=== PATIENT | female | born 1975 | race Caucasian/White ===

== ENCOUNTER 2025-01-11 20:16 | Emergency (ER) | payer MEDICAID, SELFPAY ==
--- OUTSIDE RECORDS SUMMARY | 2011-02-21 10:32 | XMS_ITS | Continuity of Care Document ---
Author Organization [facility] Address [address] [place] [address] 2[address] [place] [address] Phone Care Team Providers Care Battery Parts Assembler Name Role Phone Duane Beltran MD Unavailable Unavailabl e Allergies, Adverse Reactions, Alerts Substance Reaction Status Criticality Penicillins Hives / Skin Rash Active No Informa tion amoxicillin Hives / Skin Rash Active No Informa tion erythromycin base Hives / Skin Rash Active No In formation Medications Medication Instructions Dosage Effective Dates (start - stop) Status Comments tizanidine 2 mg Cap take 2 capsule (4MG) by oral route every 6 hours for Myofascial pain - Active Lunesta 2 mg Tab - Active MULTIVITAMINS (unknown strength) Not Available - Active CYMBALTA (unknown strength) Not Available - Active Procedures Procedure Date Voided Encounter MD_Follow Up Level 4 Lab_Drug Screen Each MD_Follow Up Level 4 Lab_Drug Screen Each Beh_Intervention TP_Inj_Trigger Point 1 Or 2 Muscles Voided Encounter Beh_Eval MD_Follow Up Level 4 Lab_Drug Screen Each MD_Follow Up Level 3 Inj_Radiofrequency_Cervical Inj_Radiofrequency_Cervical_Add'l Levels Fluroscopic Guidance Facility_Inj_Radiofrequency_Cervical Sep Facility_Inj_Radiofrequency_Cervical_Add 'l Levels Advance Directives Directive Yes / No Effective Date File Name No Information Encounters Encounter Description Practice Location Reason(s) For Visit Diagnoses Date Provider [facility], [address] [place] [address], [place], [place], [id number], tel:[phone] [facility] No Information Devin Zepeda. [address] [place] [address], [place], [place], [id number], [place]. tel:[phone] [facility], [address] [place] [address], [place], [id number], [place] tel:[phone] [facility] No Information Chas De La Torre. [address] [place] [address], [place], [place], [id number], [place]. tel:[phone] MD_Follow Up Level 4 [facility], [address] [place] [address], [place], [place], [id number], tel:[phone] [facility] No Information Miguel Heaton. [address] [place] [address], [id number], [place]. tel:[phone] MD_Follow Up Level 4 [facility], [address] [place] [address], [place], [place], [id number], tel:[phone] [facility] No Information Gómez Zhao Shreya Mark. [address] [place] [address], [id number], . tel:[phone] [facility], [address] [place] [address], [place], [id number], [place] tel:[phone] [facility] No Information Vanesa Nelson. [address] [place] [address], [id number], . tel:[phone] [facility], [address] [place] [address], [place], [place], [id number], tel:[phone] [facility] No Information Su Justice. [address] [place] [address], [place], [place], [id number], . tel:[phone] [facility], [address] [place] [address], [place], [id number], [place] tel:[phone] [facility] No Information Devin Zepeda. [address] [place] [address], [address] [place] [address], [place], [id number], [place]. tel:[phone] [facility], [address] [place] [address], [place], [id number], [place] tel:[phone] [facility] back pain (chief complaint) No Information Vanesa Nelson. [address] [place] [address], [id number], [place]. tel:[phone] MD_Follow Up Level 4 [facility], [address] [place] [address], [place], [id number], [place] tel:[phone] [facility] No Information Lizeth Monroe. [address] [place] [address], [id number], [place]. tel:[phone] MD_Follow Up Level 3 [facility], [address] [place] [address], [place], [id number], [place] tel:[phone] [facility] neck pain (chief complaint) Spondylosis Cervical NO myelo Su Yus. [address] [place] [address], [address] [place] [address], [place], [id number], [place]. tel:[phone] [facility], [address] [place] [address], [place], [id number], [place] tel:[phone] [facility] neck pain (chief complaint) No Information Jeromyberry Vinh. [address] [place] [address], [place], [place], [id number], [place]. tel:[phone] [facility], [address] [place] [address], [place], [id number], [place] tel:[phone] [facility] No Information [facility]. [address] [place] [address], [id number], [place]. tel:[phone] [facility], [address] [place] [address], [place], [id number], [place] tel:[phone] [facility] No Information Devin David. [address] [place] [address], [place], [place], [id number], . tel:[phone] [facility], [address] [place] [address], [place], [place], [id number], tel:[phone] [facility] Adjustment disorder with mixed anxiety and depressed mood Choco Lyon. [address] [place] [address], [id number], . tel:[phone] [facility], [address] [place] [address], [place], [place], [id number], tel:[phone] [facility] Long-term (current) use of other medicationsOpioid type dependence, continuous use Devin Zepeda. [address] [place] [address], [place], [place], [id number], . tel:[phone] [facility], [address] [place] [address], [place], [place], [id number], tel:[phone] [facility] Myalgia and myositis, unspecified Su Justice. [address] [place] [address], [id number], . tel:[phone] [facility], [address] [place] [address], [place], [place], [id number], tel:[phone] [facility] CervicalgiaPain in joint involving shoulder region Amol Parish. [address] [place] [address], [id number], . tel:[phone] [facility], [address] [place] [address], [place], [place], [id number], tel:[phone] [facility] Iron deficiency anemia, unspecifiedBrachial neuritis or radiculitis nosCervical spondylosis without myelopathyMigraine, unspecified without mention of intractable migraine Chas De La Torre. [address] [place] [address], [id number], . tel:[phone] Family History Family Member Type Diagnosis Age At Onset Problem (finding) Family history of asthm a Problem (finding) Family history of depre ssion Problem (finding) Family history of migra ine Payers Payer name Insurance type Covered libertarian ID Authoriza tiviji(s) [facility] CI [id number] Social History Type Description Quantity Date Captured Comments Sex Female Smoking Status No Information Chief Complaint And Reason For Visit No Information History Of Present Illness Encounter Date Complaint History Of Prese nt Illness No Information Instructions Date Instruction Additional Infor mation No Information Assessments Type Assessment Date No Information
--- OUTSIDE RECORDS SUMMARY | 2024-06-18 09:00 | XMS_ITS ---
Author Organization [facility] Address [address] [place] [address] Care Team Providers Care Bike Mechanic Name Role Phone Heaven Patino Primary Care Provider REASON FOR VISIT new patient Encounters Encounter Location Date Provider Diagnosis [facility] [place] [phone] 06/18/2024 Heaven Patino Plan Of Treatment No Information Progress Notes * Fei JEAN BAPTISTEaDOB:1975 (49 yo F)Acc No.[id number]:06/18/2024 Progress Notes Patient: Sheridan HORNER Provider: EVERETT Garcia :1975 A ge:48 Y S ex:Female Date:06/18/2024 Phone: Address:[address] [place], [place] [id number] Subjective: * Chief Complaints: * 1 . New patient. * Medical History: Objective: * Vitals: Assessment: Plan: * Treatment: * Billing Information: * Visit Code: * Procedure Codes: * Electronic signature of BRIANNA Holder on 01/11/2025 at 09:02 PM EDT Sign off status: Pending * Provider: EVERETT Garcia Date: 0 06/18/2024 Generated for Pam bonilla/Pooja/eTransmitting on: 1 09:02 PM EDT
--- OUTSIDE RECORDS SUMMARY | 2024-06-27 10:00 | XMS_ITS ---
Author Organization [facility] Address [address] [address] Care Team Providers Care Canvas Cutter Hand Name Role Phone Heaven Patino Primary Care Provider REASON FOR VISIT new patient patient in a program in [place] will have to reschedule Encounters Encounter Location Date Provider Diagnosis [facility] [place] [phone] 06/27/2024 Heaven Patino Plan Of Treatment No Information Progress Notes * JEAN BAPTISTEFei MASSEYaDOB:1975 (49 yo F)Acc No.[id number]:06/27/2024 Progress Notes Patient: Sheridan HORNER Provider: EVERETT Garcia :1975 A ge:48 Y S ex:Female Date:06/27/2024 Phone: Address:[address] [place], [place] [id number] Subjective: * Chief Complaints: * 1 . new patient patient in a program in [place] will have to reschedule. * Medical History: Objective: * Vitals: Assessment: Plan: * Treatment: * Billing Information: * Visit Code: * Procedure Codes: * Electronic signature of BRIANNA Holder on 01/11/2025 at 09:02 PM EDT Sign off status: Pending * Provider: EVERETT Garcia Date: 0 06/27/2024 Generated for Pam bonilla/Pooja/eTransmitting on: 1 09:02 PM EDT
[2025-01-11 20:20] VITALS: BP 102/65; BP 148/84; PULSE 100; PULSE 75; RESP 15; TEMP 37; O2SAT 96; O2SAT 98; BMI 26.7
[2025-01-11 20:46] LABS: Glucose, Whole Blood 74 mg/dL (60-115)
--- NOTE | 2025-01-11 20:51 | PC.NURSE ---
pt biba from [facility] [place], a&ox4, respirations even and unlabored. pt reports x1 month of abdominal pain nausea and blood in stools. pt abdomen soft non tender to touch. vss. pt changed over with tech and security for safety and elopement risk. pt has 1:1 sitter at this time. pt denies si/hi at this time
--- NOTE | 2025-01-11 21:02 | PC.NURSE ---
MD Stack aware of pt poc, no new orders at this time, pt offers no complaints and is asymptomatic
--- OUTSIDE RECORDS SUMMARY | 2025-01-11 21:02 | XMS_ITS | Encounter Summary ---
Author Organization [facility] Address [address] [place] [address] Care Team Providers Care Telecommunications Consultant Name Role Phone Jayna Hall [facility] Primary Care Provider [phone]- [phone] Encounter Details Date Type Department Care Team (Late st Contact Info) Description 01/06/2025 Lab Requisition [facility] - Main Lab [address] [facility] [place] [address] Jayna Hall FNP [address] [place] [address] Other long term care pharmacist (current) drug therapy Social History Tobacco Use Types Packs/Day Years Used Date Smoking Tobacco: Never Assessed Comments Unknown Sex and Gender Information Value Date Recorded Sex Assigned at Not on file Legal Sex Female 4:03 PM EST Gender Identity Not on file Sexual Orientation Not on file documented as of this encounter Plan of Treatment Not on file documented as of this encounter Procedures Procedure Name Priority Date/Time Associated Diagnosis Comments HEMOGLOBIN AND HEMATOCRIT Routine 01/06/2025 7:00 AM EDT Other detention (current) drug therapy documented in this encounter Results * (ABNORMAL) Hemoglobin and hematocrit (01/06/2025 7:00 AM EDT) Hemoglobin 10.1(L) 11.5 - 16.0 g/dL LAB HEMETOLOGY METHOD 01/06/2025 10:05 AM EDT [facility] Hematocrit 32.5(L) 35.0 - 47.0 % LAB HEMETOLOGY METHOD 01/06/2025 10:05 AM [facility] Blood Venous blood specimen / Unknown Venipuncture / Unknown 01/06/2025 7:00 AM EDT 01/06/2025 9:40 AM EDT Jayna REED LAB BLOOD ORDERABLES Final Result [facility] ([facility]) [facility] [address] [place] [address], documented in this encounter Visit Diagnoses Diagnosis Other long term care pharmacist (current) drug therapy documented in this encounter Care Teams Telecommunications Consultant Relationship Specialty Start Date End Date Jayna Hall FNP [address] [place] [phone] PCP - General Family Medicine 01/01/25 documented as of this encounter
--- OUTSIDE RECORDS SUMMARY | 2025-01-11 21:02 | XMS_ITS | Encounter Summary ---
Author Organization [facility] Address [address] [place] [address] Care Team Providers Care Application Performance Engineer Name Role Phone Jayna Hall Primary Care Provider +1- [phone] Encounter Details Date Type Department Care Team (Late st Contact Info) Description 01/01/2025 Lab Requisition [facility] - Main Lab [address] [facility] [place] [address] Jayna Hall FNP [address] [place] [address] Social History Tobacco Use Types Packs/Day Years Used Date Smoking Tobacco: Never Assessed Comments Unknown Sex and Gender Information Value Date Recorded Sex Assigned at Not on file Legal Sex Female 4:03 PM EST Gender Identity Not on file Sexual Orientation Not on file documented as of this encounter Plan of Treatment Not on file documented as of this encounter Visit Diagnoses Not on filedocumented in this encounter Care Teams Application Performance Engineer Relationship Specialty Start Date End Date Jayna Hall FNP [address] [place] [address] PCP - General Family Medicine 01/01/25 documented as of this encounter
--- OUTSIDE RECORDS SUMMARY | 2025-01-11 21:02 | XMS_ITS | Encounter Summary ---
Author Organization [employer] Address [address] [place] [address] Care Team Providers Care Quill Skinner Name Role Phone Jayna Hall [facility] Primary Care Provider +1- [phone] Encounter Details Date Type Department Care Team (Late st Contact Info) Description 01/09/2025 Lab Requisition [facility] - Main Lab [address] [place] [address] Jayna Hall FNP [address] [place] [address] Other long term care pharmacist [...] Procedure Name Priority Date/Time Associated Diagnosis Comments IRON AND TIBC Routine 01/09/2025 7:00 AM EDT Other long term care pharmacist (current) drug therapy HEMOGLOBIN AND HEMATOCRIT Routine 01/09/2025 7:00 AM EDT Other fci (current) drug therapy FERRITIN Routine 01/09/2025 7:00 AM EDT Other long term care pharmacist (current) drug therapy documented in this encounter Results * Iron and TIBC (01/09/2025 7:00 AM EDT) Iron 61 40 - 150 mcg/dL LAB CHEMISTRY METHOD 01/09/2025 10:54 AM EDT [facility] TIBC 280 250 - 450 mcg/dL LAB CHEMISTRY METHOD 01/09/2025 10:54 AM EDT [facility] Iron Saturation 22 15 - 50 % LAB CHEMISTRY METHOD 01/09/2025 10:54 AM EDT [facility] Blood Venous blood specimen / Unknown Venipuncture / Unknown 01/09/2025 7:00 AM EDT 01/09/2025 9:28 AM EDT us Jayna Hall [facility] LAB BLOOD ORDERABLES Final Result Performing Organization Address City/[facility]/ZIP Co de Phone Number [facility] [address] [place] [address], [place] [phone] * Ferritin (01/09/2025 7:00 AM EDT) Ferritin 29 8 - 252 ng/mL LAB CHEMISTRY METHOD 01/09/2025 10:56 AM EDT [facility] Blood Venous blood specimen / Unknown Venipuncture / Unknown 01/09/2025 7:00 AM EDT 01/09/2025 9:28 AM EDT us Jayna Hall [facility] LAB BLOOD ORDERABLES Final Result Performing Organization Address City/[facility]/ZIP Co de Phone Number [facility] [address] [place] [address], [place] [phone] * (ABNORMAL) Hemoglobin and hematocrit (01/09/2025 7:00 AM EDT) Hemoglobin 10.1(L) 11.5 - 16.0 g/dL LAB HEMETOLOGY METHOD 01/09/2025 10:08 AM EDT [facility] Hematocrit 33.3(L) 35.0 - 47.0 % LAB HEMETOLOGY METHOD 01/09/2025 10:08 AM EDT [facility] Blood Venous blood specimen / Unknown Venipuncture / Unknown 01/09/2025 7:00 AM EDT 01/09/2025 9:28 AM EDT Jayna REED LAB BLOOD ORDERABLES Final Result [facility] ([facility]) [facility] [address] [place] [address], documented in this encounter Visit Diagnoses Diagnosis Other fci (current) drug therapy documented in this encounter Care Teams Quill Skinner Relationship Specialty Start Date End Date Jayna Hall FNP [address] [place] [phone] PCP - General Family Medicine 01/01/25 documented as of this encounter
--- OUTSIDE RECORDS SUMMARY | 2025-01-11 21:02 | XMS_ITS | Patient Health Record ---
Author Organization [facility] Address [address] [facility] [address] [place] [address] Care Team Providers Care Supervisor Post Wave Name Role Phone Heaven Patino Primary Care Provider Reason For Referral No Information Plan Of Treatment No Information Insurance Providers Payer Name Payer Address Payer Phone Subscriber Number Group Number Insured Name Patient Relationship to Insured Coverage Start Date Coverage End Date [facility] [address] [place] [phone] [id number] Sheridan Jean Baptiste Self - patient is the insured
--- OUTSIDE RECORDS SUMMARY | 2025-01-11 21:02 | XMS_ITS | Encounter Summary ---
Author Organization [employer] Address [address] [place] [address] Care Team Providers Care Survey Questionnaire Designer Name Role Phone Jayna Hall [facility] Primary Care Provider +1- [phone] Encounter Details Date Type Department Care Team (Late st Contact Info) Description 01/01/2025 Lab Requisition [facility] - Main Lab [address] [facility] [place] [address] Jayna Hall FNP [address] [place] [address] Other termite treater (current) drug therapy Social History Tobacco Use [...] Procedure Name Priority Date/Time Associated Diagnosis Comments AST, ALT, BILIRUBIN ELR STATE REPORTABLES Routine 01/01/2025 7:00 AM EDT Other termite treater (current) drug therapy HEPATITIS C VIRUS QUANTITATIVE PCR Routine 01/01/2025 7:00 AM EDT Other long-term (current) drug therapy COMPREHENSIVE METABOLIC PANEL Routine 01/01/2025 7:00 AM EDT Other long-term (current) drug therapy documented in this encounter Results * (ABNORMAL) AST, ALT, Bilirubin ELR state reportables (01/01/2025 7:00 AM EDT) ALT (SGPT) 64(H) 10 - 60 unit/L LAB CHEMISTRY METHOD 01/02/2025 10:39 AM EDT [facility] AST (SGOT) 82(H) 10 - 42 unit/L LAB CHEMISTRY METHOD 01/02/2025 10:39 AM [facility] Total Bilirubin 0.4 0.0 - 1.4 mg/dL LAB CHEMISTRY METHOD 01/02/2025 10:39 AM [facility] Blood Venous blood specimen / Unknown Venipuncture / Unknown 01/01/2025 7:00 AM EDT 01/01/2025 10:07 AM EDT us Jayna Hall [facility] NURSE LAB BLOOD ORDERABLES Final Result [facility] [address] [place] [address], [place] [phone] * (ABNORMAL) Comprehensive metabolic panel (01/01/2025 7:00 AM EDT) Sodium 142 133 - 145 mmol/L LAB CHEMISTRY METHOD 01/01/2025 11:35 AM [facility] Potassium 4.5 3.5 - 5.5 mmol/L LAB CHEMISTRY METHOD 01/01/2025 11:35 AM [facility] Chloride 107 96 - 110 mmol/L LAB CHEMISTRY METHOD 01/01/2025 11:35 AM [facility] CO2 32 21 - 32 mmol/L LAB CHEMISTRY METHOD 01/01/2025 11:35 AM [facility] Anion Gap 3 3 - 11 LAB CHEMISTRY METHOD 01/01/2025 11:35 AM [facility] Glucose 80 70 - 100 mg/dL LAB CHEMISTRY METHOD 01/01/2025 11:35 AM [facility] BUN 9 5 - 25 mg/dL LAB CHEMISTRY METHOD 01/01/2025 11:35 AM [facility] Creatinine 0.68 0.50 - 1.10 mg/dL LAB CHEMISTRY METHOD 01/01/2025 11:35 AM [facility] eGFR 106 >=60 mL/min/1. 73m2 LAB CHEMISTRY METHOD 01/01/2025 11:35 AM [facility] Comment:Calculation based on the Chronic Kidney Disease Epidemiology Collaboration (CKD-EPI) equation refit without adjustment for race. BUN/Creatinine Ratio 13.2 LAB CHEMISTRY METHOD 01/01/2025 11:35 AM [facility] Calcium 8.6 8.5 - 10.5 mg/dL LAB CHEMISTRY METHOD 01/01/2025 11:35 AM [facility] AST (SGOT) 82(H) 10 - 42 unit/L LAB CHEMISTRY METHOD 01/01/2025 11:35 AM [facility] ALT (SGPT) 64(H) 10 - 60 unit/L LAB CHEMISTRY METHOD 01/01/2025 11:35 AM [facility] Alkaline Phosphatase 60 42 - 121 unit/L LAB CHEMISTRY METHOD 01/01/2025 11:35 AM [facility] Total Protein 5.7(L) 6.0 - 8.0 g/dL LAB CHEMISTRY METHOD 01/01/2025 11:35 AM [facility] Albumin 2.9(L) 3.2 - 5.0 g/dL LAB CHEMISTRY METHOD 01/01/2025 11:35 AM [facility] Total Bilirubin 0.4 0.0 - 1.4 mg/dL LAB CHEMISTRY METHOD 01/01/2025 11:35 AM [facility] Blood Venous blood specimen / Unknown Venipuncture / Unknown 01/01/2025 7:00 AM EDT 01/01/2025 10:07 AM EDT us Jayna Hall [facility] NURSE LAB BLOOD ORDERABLES Final Result [facility] [address] [place] [address], [place] [phone] * (ABNORMAL) Hepatitis C virus quantitative molecular study (01/01/2025 7:00 AM EDT) HCV Qual Interp Detected (A) Not Detected LAB MOLECULAR DIAGNOSTICS METHOD 01/02/2025 10:25 AM EDT [facility] HCV RNA Quantitative 18,785,5 33(H) <12 I Unit/mL LAB MOLECULAR DIAGNOSTICS METHOD 01/02/2025 10:25 AM EDT [facility] HCV RNA Quantitative Log 7.27(H) <1.08 Log IU/mL LAB MOLECULAR DIAGNOSTICS METHOD 01/02/2025 10:25 AM EDT [facility] Blood Venous blood specimen / Unknown Venipuncture / Unknown 01/01/2025 7:00 AM EDT 01/01/2025 10:07 AM EDT Jayna REED LAB BLOOD ORDERABLES Final Result [facility] [address] [place] [address], [place] [phone] documented in this encounter Visit Diagnoses Diagnosis Other termite treater (current) drug therapy documented in this encounter Care Teams Survey Questionnaire Designer Relationship Specialty Start Date End Date Jayna Hall FNP [address] [place] [phone] PCP - General Family Medicine 01/01/25 documented as of this encounter
--- OUTSIDE RECORDS SUMMARY | 2025-01-11 21:03 | XMS_ITS | Clinical Summary ---
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 Name Role Phone Jayna Hall [employer]RIX WORKER Primary Care Provider [phone] Encounters Date Type Department Care Team Description 01/09/2025 Lab Requisition [facility] [address] [place] [address] Jayna Hall FNP Other intermediate (current) drug therapy 01/06/2025 Lab Requisition [facility] [address] [place] [address] Jayna Hall FNP Other watermaster (current) drug therapy 01/01/2025 Lab Requisition [facility] [address] [place] [address] Jayna Hall FNP 01/01/2025 Lab Requisition [facility] [address] [place] [phone] Jayna Hall FNP Other intermediate (current) drug therapy from Last 3 Months Social History Tobacco Use Types Packs/Day Years Used Date Smoking Tobacco: Never Assessed Comments Unknown Sex and Gender Information Value Date Recorded Sex Assigned at Not on file Legal Sex Female 4:03 PM EST Gender Identity Not on file Sexual Orientation Not on file Plan of Treatment Health Maintenance Due Date Last Done Comments Breast Cancer Screening 1973 Colorectal Cancer Screening: Colonoscopy 1973 DTaP,Tdap,and Td Vaccines (1 - Tdap) 1992 Hepatitis B Vaccines (1 of 3 - 19+ 3-dose series) 1992 Cervical Cancer Screening: P ap Smear 1994 Pneumococcal Vaccine: 50+ Ye ars (1 of 1 - PCV) 08/13/2023 Zoster Vaccines (1 of 2) 08/13/2023 Depression Screening 04/03/2024 COVID-19 Vaccine (1 - 2023-2 5 season) 2024 Influenza Vaccine (#1) 2024 HIV Screening 01/01/2025 Social Influencers of Health Screening 01/01/2025 RSV Immunization Adult Patie nts (1 - 1-dose 75+ series) 2048 Hepatitis C Screening Completed 01/01/2025 HIB Vaccines Aged Out No longer eligi ble based on patient's age to complete this topic HPV Vaccines Aged Out No longer eligi ble based on patient's age to complete this topic Hepatitis A Vaccines Aged Out No long er eligible based on patient's age to complete this topic IPV Vaccines Aged Out No longer eligi ble based on patient's age to complete this topic MMR Vaccines Aged Out No longer eligi ble based on patient's age to complete this topic Meningococcal ACWY Vaccine Aged Out N o longer eligible based on patient's age to complete this topic Meningococcal B Vaccine Aged Out No l onger eligible based on patient's age to complete this topic RSV Immunization Patients Un eros 20 months Aged Out No longer eligible b ased on patient's age to complete this topic Varicella Vaccines Aged Out No longer eligible based on patient's age to complete this topic Procedures Procedure Name Priority Date/Time Associated Diagnosis Comments IRON AND TIBC Routine 01/09/2025 7:00 AM EDT Other intermediate (current) drug therapy FERRITIN Routine 01/09/2025 7:00 AM EDT Other watermaster (current) drug therapy HEMOGLOBIN AND HEMATOCRIT Routine 01/09/2025 7:00 AM EDT Other intermediate (current) drug therapy HEMOGLOBIN AND HEMATOCRIT Routine 01/06/2025 7:00 AM EDT Other watermaster (current) drug therapy AST, ALT, BILIRUBIN ELR STATE REPORTABLES Routine 01/01/2025 7:00 AM EDT Other intermediate (current) drug therapy COMPREHENSIVE METABOLIC PANEL Routine 01/01/2025 7:00 AM EDT Other intermediate (current) drug therapy HEPATITIS C VIRUS QUANTITATIVE PCR Routine 01/01/2025 7:00 AM EDT Other intermediate (current) drug therapy from Last 3 Months Results * Iron and TIBC (01/09/2025 7:00 AM EDT) Pathologist [facility] Iron 61 40 - 150 mcg/dL LAB CHEMISTRY METHOD 01/09/2025 10:54 AM EDT [facility] TIBC 280 250 - 450 mcg/dL LAB CHEMISTRY METHOD 01/09/2025 10:54 AM EDT [facility] Iron Saturation 22 15 - 50 % LAB CHEMISTRY METHOD 01/09/2025 10:54 AM EDT [facility] Blood Venous blood specimen / Unknown Venipuncture / Unknown 01/09/2025 7:00 AM EDT 01/09/2025 9:28 AM EDT us Jayna Hall [facility] BLOOD ORDERABLES Final Result [facility] [address] [place] [address], * (ABNORMAL) Hemoglobin and hematocrit (01/09/2025 7:00 AM EDT) Only the most recent of2 resultswithin the time period is included. Pathologist [facility] Hemoglobin 10.1(L) 11.5 - 16.0 g/dL LAB HEMETOLOGY METHOD 01/09/2025 10:08 AM EDT [facility] Hematocrit 33.3(L) 35.0 - 47.0 % LAB HEMETOLOGY METHOD 01/09/2025 10:08 AM EDT [facility] Blood Venous blood specimen / Unknown Venipuncture / Unknown 01/09/2025 7:00 AM EDT 01/09/2025 9:28 AM EDT us Jayna Hall [facility] LAB BLOOD ORDERABLES Final Result [facility] [address] [place] [address], [place] [phone] * Ferritin (01/09/2025 7:00 AM EDT) Pathologist [facility] Ferritin 29 8 - 252 ng/mL LAB CHEMISTRY METHOD 01/09/2025 10:56 AM EDT [facility] Blood Venous blood specimen / Unknown Venipuncture / Unknown 01/09/2025 7:00 AM EDT 01/09/2025 9:28 AM EDT us Jayna Hall [facility] BLOOD ORDERABLES Final Result Performing Organization Address City/[facility]/ZIP Co de Phone Number [facility] [address] [place] [address], [place] [phone] * (ABNORMAL) AST, ALT, Bilirubin ELR state reportables (01/01/2025 7:00 AM EDT) [facility] ALT (SGPT) 64(H) 10 - 60 unit/L LAB CHEMISTRY METHOD 01/02/2025 10:39 AM EDT [facility] AST (SGOT) 82(H) 10 - 42 unit/L LAB CHEMISTRY METHOD 01/02/2025 10:39 AM EDT [facility] Total Bilirubin 0.4 0.0 - 1.4 mg/dL LAB CHEMISTRY METHOD 01/02/2025 10:39 AM EDT [facility] Blood Venous blood specimen / Unknown Venipuncture / Unknown 01/01/2025 7:00 AM EDT 01/01/2025 10:07 AM EDT us Jayna Hall [facility] BLOOD ORDERABLES Final Result [facility] [address] [place] [address], [place] [phone] * (ABNORMAL) Hepatitis C virus quantitative molecular study (01/01/2025 7:00 AM EDT) [facility] HCV Qual Interp Detected (A) Not Detected [...] AM EDT 01/01/2025 10:07 AM EDT Jayna Hall [facility] BLOOD ORDERABLES Final Result Performing Organization Address City/[facility]/ZIP Co de Phone Number [facility] [address] [place] [address], [place] [phone] * (ABNORMAL) Comprehensive metabolic panel (01/01/2025 7:00 AM EDT) [facility] Sodium 142 133 - 145 mmol/L LAB CHEMISTRY METHOD 01/01/2025 11:35 AM EDT [facility] Potassium 4.5 3.5 - 5.5 mmol/L LAB CHEMISTRY METHOD 01/01/2025 11:35 AM EDT [facility] Chloride 107 96 - 110 mmol/L LAB CHEMISTRY METHOD 01/01/2025 11:35 AM EDT [facility] CO2 32 21 - 32 mmol/L LAB CHE[facility]STR[facility] An[facility] Gap 3 3 - 11 LAB CHEMISTRY METHOD 01/01/2025 11:35 AM [facility] Glucose 80 70 - 100 mg/dL LAB CHEMISTRY METHOD 01/01/2025 11:35 AM [facility] BUN 9 5 - 25 mg/dL LAB CHEMISTRY METHOD 01/01/2025 11:35 AM [facility] Creatinine 0.68 0.50 - 1.10 mg/dL LAB CHEMISTRY METHOD 01/01/2025 11:35 AM [facility] eGFR 106 >=60 mL/min/1. 73m2 LAB CHEMISTRY METHOD 01/01/2025 11:35 AM [facility] Comment:Calculation based on the Chronic Kidney Disease Epidemiology Collaboration (CKD-EPI) equation refit without adjustment for race. BUN/Creatinine Ratio 13.2 LAB CHEMISTRY METHOD 01/01/2025 11:35 AM [facility] Calcium 8.6 8.5 - 10.5 mg/dL LAB CHEMISTRY METHOD 01/01/2025 11:35 AM [facility] AST (SGOT) 82(H) 10 - 42 unit/L LAB CHEMISTRY METHOD 01/01/2025 11:35 AM [facility] ALT (SGPT) 64(H) 10 - 60 unit/L LAB CHEMISTRY METHOD 01/01/2025 11:35 AM [facility] Alkaline Phosphatase 60 42 - 121 unit/L LAB CHEMISTRY METHOD 01/01/2025 11:35 AM [facility] Total Protein 5.7(L) 6.0 - 8.0 g/dL LAB CHEMISTRY METHOD 01/01/2025 11:35 AM [facility] Albumin 2.9(L) 3.2 - 5.0 g/dL LAB CHEMISTRY METHOD 01/01/2025 11:35 AM [facility] Total Bilirubin 0.4 0.0 - 1.4 mg/dL LAB CHEMISTRY METHOD 01/01/2025 11:35 AM EDT [facility] Blood Venous blood specimen / Unknown Venipuncture / Unknown 01/01/2025 7:00 AM EDT 01/01/2025 10:07 AM EDT us Jayna REED LAB BLOOD ORDERABLES Final Result [facility] [address] [place] [address], [place] [phone] from Last 3 Months Care Teams Pulp Mill Supervisor Relationship Specialty Start Date End Date Jayna Hall FNP [address] [place] [phone] PCP - General Family Medicine 01/01/25
[2025-01-11 21:11] LABS: Appearance Urine Clear; Glucose Urine UA Negative (Negative); PH 5.5 (5.0-9.0); Specific Gravity - Urine 1.010 (1.005-1.025)
[2025-01-11 21:12] LABS: UPreg QC Valid YES
[2025-01-11 21:46] LABS: MANUAL DIFF FLAG NO
[2025-01-11 21:47] LABS: Hematocrit 31.9 % (37.0-47.0); Hemoglobin 10.0 g/dl (12.0-16.0); Imm Gran Abs Auto 0.03 X10*3/uL (0.00-0.03); Imm Gran Pct Auto 0.6 % (0.0-0.4); Lymphocytes Absolute Auto 2.0 X10*3/uL (1.2-4.9); Mean Corpuscular HGB Conc 31.3 g/dl (31.0-35.0); Mean Corpuscular Hemoglobin 27.5 pg (27.0-33.0); Mean Corpuscular Volume 87.6 fL (80.0-98.0); NRBC Abs Auto 0.000 X10*3/uL (0.0-0.012); NRBC Pct Auto 0.0 /100WBC (0.0-0.2); Platelet Count 205 X10*3/uL (160-400); Red Blood Count 3.64 X10*6/uL (4.20-5.50); White Blood Count 5.3 X10*3/uL (4.8-10.8)
[2025-01-11 22:05] LABS: Alanine Aminotransferase 33 U/L (0-31); Albumin Level 3.3 g/dL (3.5-5.0); Alkaline Phosphatase 51 U/L (39-117); Anion Gap 8 (12-20); Aspartate Amino Transferase 49 U/L (5-31); Blood Urea Nitrogen 17 mg/dL (9-16); Calcium 8.1 mg/dL (8.4-10.2); Carbon Dioxide 30 mmol/L (22-29); Chloride 104 mmol/L (96-108); Creatinine Clr Calc Pharmacy 72.1; Estimated Glomerular Filt Rate > 60; Lipase 13 U/L (8-78); Potassium 4.5 mmol/L (3.3-5.1); Sodium 137 mmol/L (135-145); Total Protein 5.7 g/dL (6.5-8.0)
[2025-01-11] MEDS: HYDROcodone Bit/Acetam 5/325 TABLET 1 TAB PO (22:08)
--- NOTE | 2025-01-11 22:12 | PC.NURSE ---
PT administered PO medications, tolerated whole well with water.
--- NOTE | 2025-01-11 22:43 | PC.NURSE ---
report given to Lola CHISHOLM at [facility]
[2025-01-11 22:46] VITALS: BP 91/50; PULSE 74; RESP 14; TEMP 37.1; O2SAT 96
--- NOTE | 2025-01-11 23:34 | ED_ITS ---
HPI - Abdominal Pain General Chief Complaint: Abdominal Pain Stated Complaint: LRQ pain Time Seen by Provider: 01/11/25 21:04 Source: patient, EMS, RN notes reviewed and old records reviewed Mode of arrival: EMS Limitations: no limitations History of Present Illness ED Provider: Dr. Maame Stack HPI narrative: 49-year-old female with a history of polysubstance use disorder, major depressive disorder, generalized anxiety disorder, PTSD, panic disorder and colitis presenting with abdominal pain that began acutely today. Patient reports that she has been dealing with a dental abscess and severe dental pain but feels as though she is not being treated adequately at [facility] (the psychiatric facility where she is currently being treated). She is taking antibiotics but does not know which. Has been taking them for 2 days. No reported fever. States that today she got so upset that her abdominal pain? started acting up?. Has a history of colitis but has not had any bowel movements today. No reported hematochezia or melena. Denies nausea or vomiting. Related Data Allergies Allergy/AdvReac Type Severity Reaction Status Date / Time amoxicillin Allergy Rash Verified 01/11/25 20:30 erythromycin base (From Allergy Rash Verified 01/11/25 20:30 Erythrocin) meclizine Allergy Rash Verified 01/11/25 20:30 Penicillins Allergy Rash Verified 01/11/25 20:30 topiramate (From Topamax) Allergy Rash Verified 01/11/25 20:30 Review of Systems Review of Systems as per HPI, full review of systems performed and negative but for the above mentioned pertinent positives and negatives. [facility] Social History Social History Smoked in Last 30 Days: No Use of substances other than those prescribed or required for medical reasons: No Advance Directives: No Advance Directives Information Provided: No Do you have a plan to hurt others: No Plan Patient : No Physical Exam ED Exam Exam: GENERAL: Unkempt, no acute distress. SKIN: Normal skin color for ethnicity, warm, dry, no rashes noted. HEENT:? Normocephalic, atraumatic, no stridor, posterior oropharynx nonerythematous, poor [place] dentition, slight swelling on the left lateral aspect of the mandible, no palpable fluctuance in the jaw, no submandibular swelling or skin changes, PERRLA, EOMI. NECK: Soft, supple, full ROM, midline structures nontender, no step-offs, no deformities, no lymphadenopathy. CHEST: Heart regular rate and rhythm, no murmurs, symmetric chest rise and fall. PULMONARY: Clear to auscultation bilaterally, no labored breathing, no wheezes/rhales/rhonchi. ABDOMINAL: Soft, nondistended, diffusely tender to palpation without rebound or guarding, positive bowel sounds in all quadrants. : Deferred. MUSCULOSKELETAL: Normal tone, full range of motion, no deformities, no peripheral edema. NEURO: Alert and oriented x3, CN II through XII intact, equal strength and sensation bilateral upper and lower extremities, no focal neurologic deficits.? PSYCHIATRIC: Flat affect, poor eye contact, withdrawn Vital Signs: Vital Signs - 24 hr 01/11/25 20:20 01/11/25 22:46 Temperature 98.6 F 98.8 F Pulse Rate 75 74 Respiratory Rate 15 14 Blood Pressure 102/65 91/50 L Pulse Oximetry 96 96 Oxygen Delivery Method Room Air Room Air BMI result Body Mass Index 26.7 Medical Decision Making Medical Decision Making [facility] Narrative: This patient presents today with a chief complaint of abdominal pain. Differential diagnosis for this patient is broad. It includes colitis flare, appendicitis, cholecystitis, bowel obstruction, peptic ulcer disease, pyelonephritis, vascular pathology, among many others. A broad-based workup based on history and physical examination was obtained. Abdominal exam is benign. Patient is tolerating oral intake here in the emergency department. She is currently on 2 separate antibiotics (clindamycin and amoxicillin) and needs to see a dentist for her severe dental caries. She knows that she needs to have her teeth pulled. She has no fever. No airway compromise. Blood work is reassuring. She is stable for return to [facility], outpatient follow up with her doctors and dentists. Differential Diagnosis Differential Diagnoses: The differential diagnosis associated with the presentation includes (as above) Admission/Observation Consideration of admission/observation: Escalation of care including admission/observation considered Lab Data [facility] Lab Attestation statement: I reviewed the patient's lab results. 01/11/25 21:21 01/11/25 21:21 Labs: Lab Results 01/11/25 01/11/25 01/11/25 Range/Units 20:43 20:56 21:21 WBC 5.3 (4.8-10.8) X10*3/uL RBC 3.64 L (4.20-5.50) X10*6/uL Hgb 10.0 L (12.0-16.0) g/dl Hct 31.9 L (37.0-47.0) % MCV 87.6 (80.0-98.0) fL MCH 27.5 (27.0-33.0) pg MCHC 31.3 (31.0-35.0) g/dl RDW 16.5 H (11.0-16.0) % Plt Count 205 (160-400) X10*3/uL MPV 11.4 (9.4-12.3) fL Immature Gran % (Auto) 0.6 H (0.0-0.4) % Neut % (Auto) 43.1 L (45-73) % Lymph % (Auto) 38.2 (20-40) % [place] % (Auto) 14.5 H (2-11) % Eos % (Auto) 3.0 (0-4) % Baso % (Auto) 0.6 (0-2) % Lymph # (Auto) 2.0 (1.2-4.9) X10*3/uL [place] # (Auto) 0.8 (0.1-1.2) X10*3/uL Eos # (Auto) 0.2 (0.0-0.4) X10*3/uL Baso # (Auto) 0.0 (0.0-0.2) X10*3/uL Abs Immat Gran (auto) 0.03 (0.00-0.03) X10*3/uL Absolute Neuts (auto) 2.3 (2.0-8.3) x10*3/uL Absolute Nucleated RBC 0.000 (0.0-0.012) X10*3/uL Nucleated RBC % (auto) 0.0 (0.0-0.2) /100WBC Sodium 137 (135-145) mmol/L Potassium 4.5 (3.3-5.1) mmol/L Chloride 104 (96-108) mmol/L Carbon Dioxide 30 H (22-29) mmol/L Anion Gap 8 L (12-20) BUN 17 H (9-16) mg/dL Creatinine 0.76 (0.5-1.4) mg/dL Estim Creat Clear Calc 72.1 Estimated GFR > 60 POC Glucose 74 (60-115) mg/dL Random Glucose 75 (60-115) mg/dL Calcium 8.1 L (8.4-10.2) mg/dL Total Bilirubin 0.3 (0.0-1.0) mg/dL AST 49 H (5-31) U/L ALT 33 H (0-31) U/L Alkaline Phosphatase 51 (39-117) U/L Total Protein 5.7 L (6.5-8.0) g/dL Albumin 3.3 L (3.5-5.0) g/dL Lipase 13 (8-78) U/L Urine Color Yellow Urine Appearance Clear Urine pH 5.5 (5.0-9.0) Ur Specific [place] 1.010 (1.005-1.025) Urine Protein Negative (Neg-Trace) mg/dL Urine Glucose (UA) Negative (Negative) mg/dL Urine Ketones Negative (Negative) mg/dL Urine Blood Negative (Negative) Urine Nitrite Negative (Negative) Ur Leukocyte Esterase Negative (Negative) Urine RBC 0-2 (0-2) /HPF Urine WBC 0-5 (0-5) /HPF Ur Squamous Epith Cells 0-2 (0-2) /HPF Urine Bacteria None Seen (None Seen) Hyaline Casts 0-2 (0-2) /LPF Urine Test NEGATIVE (NEGATIVE) Independent Historian Clinical information obtained from an independent historian. History obtained from or confirmed by: EMS and Other ([facility] records) External Record Review External record reviewed: Inpatient record and Outpatient record Prescription Management I considered prescription management with: Pain Medication and Antibiotic Chronic Conditions Patient?s care impacted by: Other (colitis, SHAKA, PTSD, MDD, TASHA) Social Determinants Patient?s care significantly limited by Social Determinants of Health including: Problems related to primary support group and Other Social Determinant of Health Medications Administered Discontinued Medications Generic Name Dose Route Start Last Admin Trade Name Freq PRN Reason Stop Dose Admin Hydrocodone Bitart/Acetaminophen 1 tab 01/11/25 21:57 01/11/25 22:08 Hydrocodone Bit/Acetam 5/325 Tablet PO 01/11/25 21:58 1 tab ONCE ONE Administration Dicyclomine HCl 20 mg 10/11/25 21:57 01/11/25 22:08 Dicyclomine Hcl 10 Mg Capsule PO 01/11/25 21:58 20 mg ONCE ONE Administration Discharge Plan Discharge Clinical Impression: Dental abscess, Pain due to dental caries, Acute generalized abdominal pain, History of colitis Patient Disposition: er Psychiatric Hosp Instructions: Dental Abscess (ED), Abdominal Pain (ED) Additional Instructions: Continue your antibiotics as prescribed until the course is completed. Do not stop this medication early if you start to feel better. Continue to use your methadone and Tylenol as needed for dental pain. You need to see a dentist as soon as possible to have your teeth pulled. Return to the ER with any new or worsening symptoms including: Worsening swelling in your face, fevers greater than 100?, vomiting, any new symptom that concerns you. Print Language: Arabic
[2025-01-11 23:48] VITALS: BP 110/60; PULSE 65
[2025-01-12 00:19] VITALS: BP 110/60; PULSE 65; RESP 16; TEMP 37.1; O2SAT 98
== END 2025-01-12 00:23 ==
PROVIDERS: Emergency Provider Emergency Medicine
DX: K04.7 Periapical abscess without sinus (principal); R10.84 Generalized abdominal pain; Z87.19 Personal history of other diseases of the digestive system
CPT/HCPCS: 36415; 80053; 81001; 81025; 82947; 83690; 85025; 99284